=== PATIENT | female | born 1985 | race Caucasian/White ===

== ENCOUNTER 2016-11-03 11:48 | Emergency (ER) | payer SELFPAY ==
[~2016-11-03 11:48] MED LIST: CETI10 PO; HYDR50TA94 PO; SERT-129 PO
--- NOTE | 2016-11-03 12:38 | PD ---
HPI Chief Complaint I don't feel well Date Seen: Nov 03, 2016 Time Seen: 12:34 Travel History International Travel<30 Days: No Contact w/Intl Traveler<30Days: No Known Affected Area: No History of Present Illness HPI 31-year-old who is at 18-19 weeks gestation, being followed by [facility], comes in today for evaluation as she felt poorly. Patient states that she felt a little short of breath and shaky earlier this morning around 845. Although she has felt quite a bit better now she still feels like she is a little shaky. Patient denies anemia and her last hematocrit was 39 and this was 6 weeks ago. Patient has some hypertension with her first but delivered at term with a section due to failure to progress. Patient does have anxiety and is being treated with Zoloft. Para: 1 : 2 History Past Medical History Narrative Medical Anxiety Mild hypertension with her first , did not need induction Obstetric History Obstetric History section Past Surgical History Narrative Surgical section Family History Family History: Negative Social History Alcohol Use: No Tobacco Use: No Substance Abuse: No Allergies-Medications (Allergen,Severity, Reaction): Coded Allergies: Latex (Verified Allergy, Severe, 02/28/16) SENSITIVITY Bacitracin (Verified Allergy, Unknown, 02/28/16) Cortisone (Verified Allergy, Unknown, 02/28/16) Home Meds Reported Medications Cetirizine 10 Mg Tab10 Mg PO HS Ref 0 05/30/16 Sertraline 100 Mg [id number] Mg PO DAILY #30 TAB Ref 0 05/30/16 Hydroxyzine HCl 50 Mg Tab50 Mg PO HS PRN (INSOMNIA) #30 TAB Ref 0 05/30/16 Review of Systems Except as stated in HPI: all other systems reviewed are Neg Physical Exam Narrative GENERAL: Well-nourished, well-developed patient. SKIN: Warm and dry. HEAD: Normocephalic and atraumatic. EYES: No scleral icterus. No injection or drainage. ENT: No nasal drainage noted. Mucous membranes pink. Airway patent. NECK: Supple, trachea midline. No JVD. CARDIOVASCULAR: Regular rate and rhythm without murmurs, gallops, or rubs. RESPIRATORY: Breath sounds equal bilaterally. No accessory muscle use. BREASTS: Bilateral exam showed no masses , no retractions, no nipple discharge. ABDOMEN/GI: Abdomen soft, non-tender, bowel sounds present, no rebound, no guarding Gravid to [-] weeks size Fundal Height: [18-] GENITOURINARY: Deferred External Genitalia: intact and normal in appearance BUS glands: [-] Cervix: [-] Dilatation: [-] Effacement: [-] Station: [-] Presentation: [-] Membranes: [intact or ruptured] Uterine Contractions: [-] FHT's: 152 Category: [-] Baseline: [-] Reactive: [-] Variability: [-] Decels: [-] EXTREMITIES: No cyanosis or edema. BACK: Nontender without obvious deformity. No CVA tenderness. NEUROLOGICAL: Awake and alert. Motor and sensory grossly within normal limits. Five out of 5 muscle strength in all muscle groups. Normal speech. Data Data Vital Signs Reviewed: Yes MDM Plan 31-year-old at 18-19 weeks gestation Normal examination and evaluation, blood pressure is normotensive Discussed dietary changes discharge and patient will follow-up with her primary provider Diagnosis Diagnosis: Primary Impression: Dizziness, nonspecific Additional Impressions: 18 weeks gestation of Morbid obesity due to excess calories Previous delivery affecting , antepartum Disposition: 01 DISCHARGE HOME Patricia Arita MD Nov 03, 2016 12:38
== END 2016-11-03 13:28 | disposition home or self-care (01) ==
LOC: HOBED 11:48
DX: O26.892 Other specified pregnancy related conditions, second trimester (principal); O99.212 Obesity complicating pregnancy, second trimester; O99.342 Other mental disorders complicating pregnancy, second trimester; R55 Syncope and collapse; F41.9 Anxiety disorder, unspecified
CPT/HCPCS: 99282

== ENCOUNTER 2017-03-25 10:06 | Inpatient (IN) | payer MEDICAID ==
[2017-03-25] VITALS (14 sets, daily range): BP systolic 106–125; BP diastolic 60–77; PULSE 73–101; RESP 16–20; TEMP 97.7–98.7; O2SAT 99–100
[~2017-03-25] VITALS: Ht 160 cm; Wt 115.0 kg
[2017-03-25] MEDS ORDERED: PREN29TA PO (10:36)
[2017-03-25] MEDS ORDERED: DIPH50LI13 (10:38)
--- NOTE | 2017-03-25 10:54 | HHI.HP ---
HPI Chief Complaint Scheduled Date Seen: Mar 25, 2017 Time Seen: 10:30 Travel History International Travel<30 Days: No Contact w/Intl Traveler<30Days: No Known Affected Area: No History of Present Illness HPI Patient is a 31-year-old at 38 weeks and 1 day who presents for a scheduled . She is a [facility] patient. She has had a normal except for a lot of nausea. She reports that she has been having contractions about 2-3 an hour, irregularly. She denies any vaginal bleeding, leakage of fluid. She reports movement. The last time she had anything to eat was around 7-8 PM last night. Weeks Gestation: 38 Para: 1 : 2 History Past Medical History Narrative Medical Patient has a history of asthma associated with seasonal allergies Obstetric History Obstetric History Patient is a . Her last was compensated by some high blood pressure, which did not require medication. She had a at 41 weeks and 2 days because she says the baby was stuck sideways in her abdomen and was unable to get the head into the pelvis. She did have a normal weight baby of 7 lbs. 14 oz. She currently has a healthy 4-year-old son. Patient reports that she has had this has been normal without any elevated blood pressure blood sugars. Labs have been normal per patient report. Past Surgical History Narrative Surgical [place] teeth removal Family History Narrative Family History Family history of diabetes Social History Narrative Social History Patient lives at home with her and 4-year-old son. Alcohol Use: No Tobacco Use: No Substance Abuse: No Allergies-Medications (Allergen,Severity, Reaction): Coded Allergies: bacitracin (Unverified Allergy, Severe, blisters, 03/25/17) chloroxylenol (Verified Allergy, Severe, blisters, 03/25/17) cortisone (Unverified Allergy, Severe, rash, 03/25/17) latex (Unverified Allergy, Severe, hives, 03/25/17) Home Meds Active Scripts Sertraline (Sertraline) 100 Mg Tab, 100 MG PO DAILY, #30 TAB 0 Refills Prov:Aurora Chacko MD R2 03/24/17 Reported Medications Diphenhydramine HCl (Unisom) 50 Mg/30 Ml Liquid, 25 MG DAILY 03/25/17 Vit-Iron Carbonyl ( Plus Iron 29-1 mg) 29 Mg Iron-1 Mg Tab, 1 TAB PO DAILY for Nutritional Supplement, #30 TAB 0 Refills 03/25/17 Discontinued Reported Medications Cetirizine (Cetirizine) 10 Mg Tab, 10 MG PO HS for Allergies, TAB 0 Refills 05/30/16 Hydroxyzine HCl (Hydroxyzine HCl) 50 Mg Tab, 50 MG PO HS Y for INSOMNIA, #30 TAB 0 Refills 05/30/16 Review of Systems General / Constitutional: No: Fever, Chills Eyes: No: Visual changes HENT: No: Headaches Cardiovascular: No: Chest Pain or Discomfort, Edema Respiratory: No: Short of Breath Gastrointestinal: Nausea, No: Vomiting, Abdominal Pain Genitourinary: No: Dysuria Physical Exam Vital Signs Date Time Temp Pulse Resp B/P (MAP) Pulse Ox O2 Delivery O2 Flow Rate FiO2 03/25/17 10:30 85 120/74 (89) 03/25/17 10:20 101 125/77 (93) Narrative GENERAL: Well-nourished, well-developed obese female patient. SKIN: Warm and dry. HEAD: Normocephalic and atraumatic. EYES: No scleral icterus. No injection or drainage. ENT: No nasal drainage noted. Mucous membranes pink. Airway patent. NECK: Supple, trachea midline. No JVD. CARDIOVASCULAR: Regular rate and rhythm without murmurs, gallops, or rubs. RESPIRATORY: Breath sounds equal bilaterally. No accessory muscle use. ABDOMEN/GI: Abdomen soft, non-tender, bowel sounds present, no rebound, no guarding Gravid to 38 weeks size FHT's: Category: Category 1 Baseline: 130 Reactive: Reactive Variability: Moderate Decels: none EXTREMITIES: No cyanosis or edema. BACK: Nontender without obvious deformity. No CVA tenderness. NEUROLOGICAL: Awake and alert. Motor and sensory grossly within normal limits. Five out of 5 muscle strength in all muscle groups. Normal speech. Caprini VTE Risk Assessment Caprini VTE Risk Assessment: No/Low Risk (score <= 1) Caprini Risk Assessment Model Point Value = 1 Point Value = 2 Point Value = 3 Point Value = 5 Age 41-60 Minor surgery BMI > 25 kg/m2 Swollen legs Varicose veins or History of unexplained or recurrent spontaneous Oral contraceptives or hormone replacement Sepsis (< 1 month) Serious lung disease, including pneumonia (< 1 month) Abnormal pulmonary function Acute myocardial infarction Congestive heart failure (< 1 month) History of inflammatory bowel disease Medical patient at bed rest Age 61-74 Arthroscopic surgery Major open surgery (> 45 min) Laparoscopic surgery (> 45 min) Malignancy Confined to bed (> 72 hours) Immobilizing plaster cast Central venous access Age >= 75 History of VTE Family history of VTE Factor V Leiden Prothrombin [id number] Lupus anticoagulant Anticardiolipin antibodies Elevated serum homocysteine Heparin-induced thrombocytopenia Other congenital or acquired thrombophilia Stroke (< 1 month) Elective arthroplasty Hip, pelvis, or leg fracture Acute spinal cord injury (< 1 month) Prophylaxis Regimen Total Risk Factor Score Risk Level Prophylaxis Regimen 0-1 Low Early ambulation 2 Moderate Order ONE of the following: *Sequential Compression Device (SCD) *Heparin 5000 units SQ BID 3-4 Higher Order ONE of the following medications: *Heparin 5000 units SQ TID *Enoxaparin/Lovenox 40 mg SQ daily (WT < 150 kg, CrCl > 30 mL/min) *Enoxaparin/Lovenox 30 mg SQ daily (WT < 150 kg, CrCl > 10-29 mL/min) *Enoxaparin/Lovenox 30 mg SQ BID (WT < 150 kg, CrCl > 30 mL/min) AND/OR *Sequential Compression Device (SCD) 5 or more Highest Order ONE of the following medications: *Heparin 5000 units SQ TID (Preferred with Epidurals) *Enoxaparin/Lovenox 40 mg SQ daily (WT < 150 kg, CrCl > 30 mL/min) *Enoxaparin/Lovenox 30 mg SQ daily (WT < 150 kg, CrCl > 10-29 mL/min) *Enoxaparin/Lovenox 30 mg SQ BID (WT < 150 kg, CrCl > 30 mL/min) AND *Sequential Compression Device (SCD) Data Data Vital Signs Reviewed: Yes Orders Orders Admit To Inpatient (03/25/17 ) Code Status (03/25/17 10:30) Vital Signs (Adult) .ON ADMISSION (03/25/17 10:30) Activity Oob Ad Ellen (03/25/17 10:30) Heart (03/25/17 10:30) Urinary Catheter Management KENAN.Q8H (03/25/17 10:30) ^ Preps (03/25/17 10:30) Scd / Teofilo / Foot Pump KENAN.QSHIFT (03/25/17 10:30) ^ Ultrasound For Locatio (03/25/17 10:30) Diet Npo (03/25/17 Lunch) Lactated Ringer's 1000 Ml Inj (Lr 1000 M (03/25/17 10:30) Lactated Ringer's 1000 Ml Inj (Lr 1000 M (03/25/17 11:00) Cefazolin 2 Gm Premix (Ancef 2 Gm Premix (03/25/17 11:30) Citric Acid-Sodium Citrate Liq (Bicitra (03/25/17 12:00) Type And Screen (03/25/17 10:30) Complete Blood Count With Diff (03/25/17 10:30) Urinalysis - C+S If Indicated (03/25/17 10:30) Drug Screen, Random Urine (03/25/17 10:30) Inpatient Certification (03/25/17 ) Specimen To Be Collected PRN (03/25/17 10:30) Specimen To Be Collected PRN (03/25/17 10:30) Assessment/Plan Problem List: (1) scheduled (2) Previous delivery affecting , antepartum ICD Codes: O34.219 - Maternal care for unspecified type scar from previous delivery Status: Acute (3) 38 weeks gestation of ICD Codes: Z3A.38 - 38 weeks gestation of Assessment and Plan Patient is a 31-year-old at 38 weeks and 1 day with a history of asthma, not requiring medication, previous , depression on sertraline, latex allergy, possible allergy to OR disinfective solutions, who presents for a scheduled . Patient asymptomatic. heart tracing reassuring. 1. scheduled -Admit to inpatient -Type and screen, CBC, UDS, UA -Nothing by mouth -Ancef 2 g preoperatively -LR IV -Monitor heart rate -SCDs bilaterally -Monitor vital signs -Anticipate uncomplicated -No latex, consider different cleaning solutions in OR 2. depression -continue Sertraline -Anticipate withdrawal 3. asthma -no medications required -carboprost (Hemabate) should be avoided in patients with asthma 4. 38 week -Continue vitamins 5. insomnia -Continue home medication of Unisom/diphenhydramine Discussed with Dr. Payne Discharge Planning Anticipate discharge on postop day 2-3 Marlon Leger MD R2 Mar 25, 2017 10:54
[2017-03-25 11:01] LABS: AUTOMATED NEUTROPHIL # 8.2 TH/MM3 (1.8-7.7); BASOPHIL % 0.2 % (0.0-2.0); EOSINOPHIL # 0.1 TH/MM3 (0-0.4); EOSINOPHIL % 0.9 % (0.0-4.0); HEMATOCRIT 41.4 % (35.0-46.0); HEMO FLAGS DIFF FINAL; LYMPH % 16.8 % (9.0-44.0); LYMPHOCYTE # 1.8 TH/MM3 (1.0-4.8); MEAN CELL VOLUME 86.2 FL (80.0-100.0); MEAN CORPUSCULAR HEMOGLOBIN 28.5 PG (27.0-34.0); MEAN CORPUSCULAR HGB CONC 33.1 % (32.0-36.0); MONO % 4.2 % (0.0-8.0); NEUT % 77.9 % (16.0-70.0); PLATELET COUNT 231 TH/MM3 (150-450); RED CELL DISTRIBUTION WIDTH 14.9 % (11.6-17.2); WHITE BLOOD COUNT 10.6 TH/MM3 (4.0-11.0)
[2017-03-25 11:12] LABS: BACTERIA, URINE OCC /hpf; BLOOD, URINE TRACE (NEG); COMMENT (UR) CULTURE INDICATED; CULTURE IF INDICATED CULTURE INDICATED; GLUCOSE,URINE NEG (NEG); KETONE, URINE NEG (NEG); MUCUS URINE FEW /lpf (OCC); NITRITE,URINE NEG (NEG); PH, URINE 5.5 (5.0-8.5); SQUAMOUS EPITHELIAL CELL URINE 2 /hpf (0-5); URINE COLOR YELLOW (YELLW/STRAW)
[2017-03-25] MEDS ORDERED: ceFAZolin 2 GM PREMIX 50 ML IV SCH (11:30)
[2017-03-25] MEDS ORDERED: OXYTOCIN 10 UNIT/ML AMP IV ONE (12:00)
[2017-03-25] MEDS ORDERED: PROPOFOL 200 MG/20 ML AMP IV ONE (12:00)
[2017-03-25] MEDS ORDERED: KETOROLAC TROMETHAMINE 30 MG/ML (IVP) VIAL IV PUSH ONE (12:00)
[2017-03-25] MEDS ORDERED: MORPHINE SULFATE PF 5 MG/10 ML VIAL EPIDURAL ONE (12:00)
[2017-03-25] MEDS ORDERED: CITRIC ACID-SODIUM CITRATE LIQ 30 ML UDC PO SCH (12:00)
[2017-03-25] MEDS ORDERED: ONDANSETRON HCL 4 MG/2 ML VIAL IV PUSH ONE (12:00)
[2017-03-25] MEDS ORDERED: LACTATED RINGER'S 1000 ML INJ 1,000 ML IV ONE ×2 (12:00)
[2017-03-25] MEDS ORDERED: ePHEDrine/NS 25 MG/5 ML SYR IV ONE (12:00)
[2017-03-25] MEDS: LACTATED RINGER'S 1000 ML INJ 1,000 ML IV SCH ×2 (12:22→20:29)
--- NOTE | 2017-03-25 15:29 | PD.OP ---
Operative Report Date of Surgery: Mar 25, 2017 Preoperative Diagnosis: 1. IUP @ 39.4wks 2. h/o CSx1 Postoperative Diagnosis: same Procedure: rCS Anesthesia: spinal Surgeon: Tomás Payne Music Leader(s): tech Resident Surgeon: Marlon Leger, PGY-2 Operation and Findings: IVF: 1500cc UOP: 200cc EBL: 650cc Findings: vtx female delivered at 14:29, APGARs 9/9, wt 3280; filmy omental adhesions Specimens: cord blood Technique: The pt was taken to the OR where spinal anesthesia was found to be adequate. She was then prepped and draped in the normal sterile fashion. A time out was taken and agreed by all team members. A Pfannensteil skin incision was made with the scalpel and carried down to the underlying layer of fascia which was nicked in the midline. The fascia was extended laterally with Toscano scissors. Godwin clamps were used to elevate the fascia and the underlying rectus muscles were dissected off with blunt and sharp dissection. The same was done to the inferior fascia. The muscles were in the midline and the peritoneum entered bluntly. It was stretched with adequate visualization of the bladder. A bladder blade was placed and a bladder flap created. A low uterine incision was then made with the scalpel and extended bluntly. A hand was placed into the lower uterine segment and the head delivered atraumatically followed by the body. Delayed cord clamping x45sec took place while the baby was suctioned, dried, and stimulated. Cord was double clamped and handed off to awaiting team. Cord blood was collected and sent to the lab. The placenta expelled with fundal massage. The uterus was exteriorized and cleared of all clot and debris. The hysterotomy was closed with 0-vicryl in a running locked fashion. A second layer of 0-monocryl was used to embricate and achieve excellent hemostasis. Omental adhesions to the anterior uterine wall were double clamped with Zuleyma's and tied off with vicryl. The cul-de-sac was suctioned and the uterus replaced into the abdomen. The gutters were inspected and cleared of all clot and debris. The hysterotomy was made hemostatic with Genaro. All instruments were removed from the abdomen and the peritoneum was closed with 3-0 vicryl. The rectus fascia was inspected and hemostatic. The muscles were reapproximated with a horizontal mattress stitch using 0-vicryl. The fascia was closed with 0-vicryl in a running fashion from L to R. The subcutaneous tissue was irrigated and the Bovie used to achieve excellent hemostasis. The tissue was reapproximated with 3-0 plain gut. The skin was clsoed with 4-0 monocryl in a running subcuticular fashion. The incision was dressed and a closing time out performed. The pt tolerated the procedure well and was taken to the PACU in stable condition. Sponge, laps, instruments, and needle counts were correct x3. Tomás Payne MD Mar 25, 2017 15:29
[2017-03-25] MEDS ORDERED: SODIUM CHLORIDE 0.9% FLUSH 10 ML FLUSH IV FLUSH PRN (15:30)
[2017-03-25] MEDS ORDERED: ONDANSETRON HCL 4 MG/2 ML VIAL IV PUSH PRN (15:30)
[2017-03-25] MEDS ORDERED: OXYTOCIN 30 UNITS-500ML PREMIX 500 ML IV ONE (15:30)
[2017-03-25] MEDS ORDERED: SIMETHICONE 80 MG CHEWABLE TAB PO PRN (15:30)
[2017-03-25] MEDS ORDERED: ZOLPIDEM TARTRATE 5 MG TAB PO PRN (15:30)
[2017-03-25] MEDS ORDERED: KETOROLAC TROMETHAMINE 60 MG/2 ML (IM) VIAL IM PRN (15:30)
[2017-03-25] MEDS ORDERED: ACETAMINOPHEN 325 MG TAB PO PRN (15:30)
[2017-03-25] MEDS ORDERED: OXYTOCIN 30 UNITS-500ML PREMIX 500 ML ONE (16:33)
[2017-03-25] MEDS ORDERED: diphenhydrAMINE HCL 25 MG CAP PO PRN (21:00)
[2017-03-25] MEDS: SODIUM CHLORIDE 0.9% FLUSH 10 ML FLUSH IV FLUSH SCH (21:00)
[2017-03-25] MEDS: SERTRALINE HCL 100 MG TAB PO SCH (21:28)
[2017-03-25] MEDS: oxyCODONE/ACETAMINOPHEN 5 MG/325 MG TAB PO PRN (22:10)
[2017-03-26] MEDS ORDERED: OXYTOCIN 30 UNITS-500ML PREMIX 500 ML IV PRN (01:30)
[2017-03-26] MEDS: oxyCODONE/ACETAMINOPHEN 5 MG/325 MG TAB PO PRN ×5 (02:19→20:56)
[2017-03-26 04:00] VITALS: BP 106/61; PULSE 95; RESP 18; TEMP 98.6
[2017-03-26 06:02] LABS: AUTOMATED NEUTROPHIL # 9.3 TH/MM3 (1.8-7.7); BASOPHIL % 0.1 % (0.0-2.0); EOSINOPHIL # 0.1 TH/MM3 (0-0.4); EOSINOPHIL % 0.6 % (0.0-4.0); HEMATOCRIT 35.1 % (35.0-46.0); HEMO FLAGS DIFF FINAL; LYMPH % 13.2 % (9.0-44.0); LYMPHOCYTE # 1.5 TH/MM3 (1.0-4.8); MEAN CELL VOLUME 86.3 FL (80.0-100.0); MEAN CORPUSCULAR HGB CONC 32.4 % (32.0-36.0); MONO % 4.1 % (0.0-8.0); PLATELET COUNT 161 TH/MM3 (150-450); RED BLOOD COUNT 4.07 MIL/MM3 (4.00-5.30); RED CELL DISTRIBUTION WIDTH 14.8 % (11.6-17.2); WHITE BLOOD COUNT 11.3 TH/MM3 (4.0-11.0)
[2017-03-26] MEDS: LACTATED RINGER'S 1000 ML INJ 1,000 ML IV SCH (06:29)
[2017-03-26] MEDS: PRENATAL VITAMIN CHEWABLE TAB CHEW SCH (07:49)
[2017-03-26 07:50] VITALS: BP 104/66; PULSE 80; RESP 18; TEMP 98.2
--- NOTE | 2017-03-26 08:43 | HHI.OB ---
Subjective Remarks Patient is a 31-year-old G 2 P 2 delivered at 39 weeks and 4 days. Patient is day 1 after due to prior . Patient's pain is well- controlled. Patient reports eating and drinking without any nausea or vomiting. Patient reports minimal bleeding. Patient has passed gas but no bowel movements. Patient recently had [place] removed. Patient is walking without lower extremity pain or shortness of breath. Patient wants to consider contraception and will be breast-feeding. Objective Vitals/I&O Vital Signs Date Time Temp Pulse Resp B/P (MAP) Pulse Ox O2 Delivery O2 Flow Rate FiO2 03/26/17 04:00 98.6 95 18 106/61 (76) 03/25/17 23:48 98.7 87 18 106/69 (81) 03/25/17 20:00 93 115/69 (84) 03/25/17 20:00 98.2 18 03/25/17 17:05 98.1 88 19 108/71 (83) 03/25/17 16:31 98.1 03/25/17 16:28 100 03/25/17 16:28 80 20 110/64 (79) 03/25/17 16:12 96 113/60 (77) 03/25/17 16:12 18 100 03/25/17 15:59 85 18 99 03/25/17 15:58 111/65 (80) 03/25/17 15:44 90 20 112/65 (81) 99 03/25/17 15:35 97.7 03/25/17 15:26 16 03/25/17 15:26 18 110/68 (82) 03/25/17 15:26 100 03/25/17 15:24 73 03/25/17 10:30 85 120/74 (89) 03/25/17 10:20 101 125/77 (93) Result Diagram: 03/26/17 0437 Objective Remarks GENERAL: Well-nourished, well-developed patient. CARDIOVASCULAR: Regular rate and rhythm without murmurs, gallops, or rubs. RESPIRATORY: Breath sounds equal bilaterally. No accessory muscle use. ABDOMEN/GI: Abdomen soft, non-tender, bowel sounds present. Incision: Dressing is clean, dry and intact. Fundus: Firm, non-tender at umbilicus. GENITOURINARY: Light to moderate bleeding. EXTREMITIES: No cyanosis. +1 pitting edema bilaterally. Legs are non-tender, without signs of DVT. Medications and IVs Current Medications Medications (Trade) Dose Ordered Sig/Wil Route Start Time Stop Time Status Last Admin Lactated Ringer's 1,000 ml @ 150 mls/hr Q6H40M IV 03/25/17 12:30 03/25/17 12:22 Cefazolin Sodium/ Dextrose 50 ml @ 100 mls/hr AUTOMOTIVE PARTS COUNTERPERSON IV 03/25/17 11:30 03/29/17 11:29 03/25/17 12:22 (Bicitra Liq) 30 ml AUTOMOTIVE PARTS COUNTERPERSON PO 03/25/17 12:00 03/29/17 11:59 03/25/17 12:22 (Benadryl) 25 mg HS PRN PO 03/25/17 21:00 (Zoloft) 100 mg HS PO 03/25/17 21:00 03/25/17 21:28 Lactated Ringer's 1,000 ml @ 100 mls/hr Q10H IV 03/25/17 20:29 03/26/17 16:28 Oxytocin 500 ml @ 100 mls/hr UNSCH X1 PRN IV 03/26/17 01:30 03/27/17 01:29 (NS Flush) 2 ml BID IV FLUSH 03/25/17 21:00 (NS Flush) 2 ml UNSCH PRN IV FLUSH 03/25/17 15:30 (Mylicon Chew) 80 mg QID PRN PO 03/25/17 15:30 (Tylenol) 650 mg Q6H PRN PO 03/25/17 15:30 (Toradol Inj) 30 mg Q6H PRN IM 03/25/17 15:30 (Percocet 5-325 Mg) 1 tab Q4H PRN PO 03/25/17 15:30 03/26/17 02:19 (Percocet 5-325 Mg) 2 tab Q4H PRN PO 03/25/17 15:30 03/26/17 07:49 (Merle-Colace) 2 tab Q12H PRN PO 03/25/17 15:30 (Ambien) 5 mg HS PRN PO 03/25/17 15:30 (M-M-R Ii Inj) 0.5 ml ONCE ONCE SQ 03/26/17 16:00 03/26/17 16:01 (Boostrix Inj) 0.5 ml ONCE ONCE IM 03/26/17 16:00 03/26/17 16:01 (Zofran Inj) 4 mg Q6H PRN IV PUSH 03/25/17 15:30 Assessment/Plan Problem List: (1) scheduled (2) Previous delivery affecting , antepartum ICD Codes: O34.219 - Maternal care for unspecified type scar from previous delivery Status: Acute (3) 38 weeks gestation of ICD Codes: Z3A.38 - 38 weeks gestation of Assessment and Plan Patient is a 31-year-old delivered at 38 weeks and 5 days. Patient is day 1 after . Patient was counseled to do 6 weeks of pelvic rest. Patient was counseled to follow up in one week for incision check and 6 weeks for OB follow-up. Patient requested follow-up and is considering contraception. --AF VSS --Continue routine care --Motrin and Percocet when necessary for pain --Encourage OOB --Pelvic rest for 6 weeks will need follow-up appointment at that time. --Contraception: Considering options --Anticipate discharge in 1-2 days Chronic medical problems: depression -continue Sertraline -Anticipate withdrawal asthma -no medications required -carboprost (Hemabate) should be avoided in patients with asthma insomnia -Continue home medication of Unisom/diphenhydramine Discussed with Dr. Payne Discharge Planning Anticipate discharge on postop day 2-3 Aidan Hester MD R1 Mar 26, 2017 08:43
[2017-03-26 10:50] VITALS: RESP 18
[2017-03-26 12:00] VITALS: BP 103/69; PULSE 89; RESP 18; TEMP 98.7
[2017-03-26] MEDS: DOCUSATE SODIUM 50 MG/SENNA 8.6 MG TAB PO PRN (12:20)
[2017-03-26 14:36] VITALS: RESP 18
[2017-03-26] MEDS ORDERED: MEASLES, MUMPS, RUBELLA VACCINE 0.5 ML VIAL SQ ONE (16:00)
[2017-03-26] MEDS ORDERED: DIPHTH/TETANUS/ACEL PERTUSSIS (BOOSTER) 0.5 ML VIAL/PFS IM ONE (16:00)
[2017-03-26 20:00] VITALS: BP 125/82; PULSE 82; RESP 18; TEMP 98.6
[2017-03-26] MEDS: SODIUM CHLORIDE 0.9% FLUSH 10 ML FLUSH IV FLUSH SCH (21:00)
[2017-03-26] MEDS: SERTRALINE HCL 100 MG TAB PO SCH (21:14)
[2017-03-27] MEDS: oxyCODONE/ACETAMINOPHEN 5 MG/325 MG TAB PO PRN ×5 (01:36→21:12)
[2017-03-27] MEDS: LACTATED RINGER'S 1000 ML INJ 1,000 ML IV SCH (04:30)
--- NOTE | 2017-03-27 08:35 | HHI.OB ---
Subjective Post Operative Day: 2 Remarks Patient is a 31-year-old delivered at 38 weeks and 5 days. Patient is day 2 after repeat . Patient's pain is mostly well- controlled, but she is complaining of some incisional pain and some right shoulder pain. Patient reports eating and drinking without any nausea or vomiting. Patient reports minimal bleeding. Patient has passed gas but no bowel movements. Patient is walking without lower extremity pain or shortness of breath. Patient reports desire for contraception and breast-feeding. Objective Vitals/I&O Vital Signs Date Time Temp Pulse Resp B/P (MAP) Pulse Ox O2 Delivery O2 Flow Rate FiO2 03/26/17 20:00 82 18 125/82 (96) 03/26/17 20:00 98.6 03/26/17 14:36 18 03/26/17 12:00 98.7 89 18 103/69 (80) 03/26/17 10:50 18 Result Diagram: 03/26/17 0437 Objective Remarks GENERAL: Well-nourished, well-developed patient. CARDIOVASCULAR: Regular rate and rhythm without murmurs, gallops, or rubs. RESPIRATORY: Breath sounds equal bilaterally. No accessory muscle use. ABDOMEN/GI: Abdomen soft, non-tender, bowel sounds present. Incision: Dressing is clean, dry and intact. Fundus: Firm, non-tender at umbilicus. GENITOURINARY: Light to moderate bleeding. EXTREMITIES: No cyanosis. +1 pitting edema bilaterally. Legs are non-tender, without signs of DVT. Medications and IVs Current Medications Medications (Trade) Dose Ordered Sig/Wil Route Start Time Stop Time Status Last Admin Lactated Ringer's 1,000 ml @ 150 mls/hr Q6H40M IV 03/25/17 12:30 03/25/17 12:22 Cefazolin Sodium/ Dextrose 50 ml @ 100 mls/hr EQUIPMENT SPECIALIST IV 03/25/17 11:30 03/29/17 11:29 03/25/17 12:22 (Bicitra Liq) 30 ml EQUIPMENT SPECIALIST PO 03/25/17 12:00 03/29/17 11:59 03/25/17 12:22 (Benadryl) 25 mg HS PRN PO 03/25/17 21:00 (Zoloft) 100 mg HS PO 03/25/17 21:00 03/26/17 21:14 (NS Flush) 2 ml BID IV FLUSH 03/25/17 21:00 (NS Flush) 2 ml UNSCH PRN IV FLUSH 03/25/17 15:30 (Mylicon Chew) 80 mg QID PRN PO 03/25/17 15:30 (Tylenol) 650 mg Q6H PRN PO 03/25/17 15:30 (Toradol Inj) 30 mg Q6H PRN IM 03/25/17 15:30 (Percocet 5-325 Mg) 1 tab Q4H PRN PO 03/25/17 15:30 03/26/17 20:56 (Percocet 5-325 Mg) 2 tab Q4H PRN PO 03/25/17 15:30 03/27/17 07:58 (Merle-Colace) 2 tab Q12H PRN PO 03/25/17 15:30 03/26/17 12:20 (Ambien) 5 mg HS PRN PO 03/25/17 15:30 (Zofran Inj) 4 mg Q6H PRN IV PUSH 03/25/17 15:30 (Motrin) 400 mg Q6H PRN PO 03/26/17 09:00 Assessment/Plan Problem List: (1) scheduled (2) Previous delivery affecting , antepartum ICD Codes: O34.219 - Maternal care for unspecified type scar from previous delivery Status: Acute (3) 38 weeks gestation of ICD Codes: Z3A.38 - 38 weeks gestation of Assessment and Plan Patient is a 31-year-old delivered at 38 weeks and 5 days. Patient is day 2 after repeat . Patient was counseled to do 6 weeks of pelvic rest. Patient was counseled to follow up in one week for incision check and 6 weeks for OB follow-up. Patient requested follow-up and is considering contraception. --AF VSS --Continue routine care --Motrin and Percocet when necessary for pain --Encourage OOB --Pelvic rest for 6 weeks will need follow-up appointment at that time. 1 week incision check. --Contraception: Considering options; will arrange with outpatient provider --Anticipate discharge tomorrow Chronic medical problems: depression -continue Sertraline -Anticipate withdrawal asthma -no medications required -carboprost (Hemabate) should be avoided in patients with asthma insomnia -Continue home medication of Unisom/diphenhydramine Discussed with Dr. Trevino Discharge Planning Anticipate discharge tomorrow Marlon Leger MD R2 Mar 27, 2017 08:35
[2017-03-27 08:48] VITALS: BP 110/69; PULSE 89; RESP 16; TEMP 98.4
[2017-03-27] MEDS: SODIUM CHLORIDE 0.9% FLUSH 10 ML FLUSH IV FLUSH SCH (09:41)
[2017-03-27] MEDS: PRENATAL VITAMIN CHEWABLE TAB CHEW SCH (09:41)
[2017-03-27] MEDS: DOCUSATE SODIUM 50 MG/SENNA 8.6 MG TAB PO PRN (12:27)
[2017-03-27] MEDS: IBUPROFEN 400 MG TAB PO PRN ×2 (16:37→21:12)
[2017-03-27] MEDS: SERTRALINE HCL 100 MG TAB PO SCH (20:38)
[2017-03-27 21:12] VITALS: BP 142/80; PULSE 94; RESP 20; TEMP 98.3
[2017-03-27 21:30] VITALS: BP 142/80; PULSE 94; RESP 20; TEMP 98.3
[2017-03-28] MEDS: IBUPROFEN 400 MG TAB PO PRN ×2 (03:55→11:01)
[2017-03-28] MEDS: oxyCODONE/ACETAMINOPHEN 5 MG/325 MG TAB PO PRN ×2 (03:55→11:01)
[2017-03-28] MEDS ORDERED: IBUP1TAB5 PO (08:15)
[2017-03-28] MEDS ORDERED: PERI PO (08:15)
[2017-03-28] MEDS ORDERED: OXYC1TAB63 PO (08:15)
--- NOTE | 2017-03-28 08:16 | HHI.DCPOC ---
Discharge Care Plan Diagnosis: (1) scheduled Report Symptoms to Your Doctor -Temperature above 100.5 degrees -Redness, of incision or excessive or foul smelling drainage -Unusual pain or calf pain -Increased vaginal bleeding -Painful or difficulty urinating -Feelings of extreme sadness or anxiety after 2 weeks Goals to Promote Your Health * To prevent worsening of your condition and complications * To maintain your health at the optimal level Directions to Meet Your Goals Take your medications as prescribed Follow your dietary instruction Follow activity as directed Ensure plenty of rest for recovery Drink fluids for hydration Keep your appointments as scheduled Take your immunizations and boosters as scheduled If your symptoms worsen call your PCP, if no PCP go to Urgent Care Center or Emergency Room Smoking is Dangerous to Your Health. Avoid second hand smoke Call the 24-hour crisis hotline for domestic abuse at Axel Winn MD R2 Mar 28, 2017 08:16
--- NOTE | 2017-03-28 08:20 | HHI.OB ---
Subjective Post Operative Day: 3 Remarks Pt seen and examined this morning. Postoperative day # 3 AFVSS overnight. Incision not draining. Decreased lochia. Denies dysuria. No breast tenderness. She is feeding the baby via breast. Appetite good. No nausea or vomiting. Patient has not yet had a bowel movement, but does endorse bowel gas. Ambulating well. Denies calf pain or shortness of breath. Otherwise, she is doing well this morning and has no other concerns. (Axel Winn MD R2) Remarks Patient seen and evaluated with resident under direct supervision, agree with assessment and plan. (Russ Seo MD) Objective Vitals/I&O Vital Signs Date Time Temp Pulse Resp B/P (MAP) Pulse Ox O2 Delivery O2 Flow Rate FiO2 03/27/17 21:30 98.3 03/27/17 21:30 94 20 142/80 (100) 03/27/17 21:12 98.3 20 03/27/17 21:12 94 142/80 (100) 03/27/17 08:48 98.4 89 16 110/69 (83) (Axel Winn MD R2) Result Diagram: 03/26/17 0437 Objective Remarks GENERAL: Well-nourished, well-developed patient. CARDIOVASCULAR: Regular rate and rhythm without murmurs, gallops, or rubs. RESPIRATORY: Breath sounds equal bilaterally. No accessory muscle use. ABDOMEN/GI: Abdomen soft, non-tender, bowel sounds present. Incision: Dressing is clean, dry and intact. Fundus: Firm, non-tender at umbilicus. GENITOURINARY: Light to moderate bleeding. EXTREMITIES: No cyanosis. +1 pitting edema bilaterally. Legs are non-tender, without signs of DVT. Medications and IVs Current Medications Medications (Trade) Dose Ordered Sig/Wil Route Start Time Stop Time Status Last Admin Lactated Ringer's 1,000 ml @ 150 mls/hr Q6H40M IV 03/25/17 12:30 03/25/17 12:22 Cefazolin Sodium/ Dextrose 50 ml @ 100 mls/hr [employer] IV 03/25/17 11:30 03/29/17 11:29 03/25/17 12:22 (Bicitra Liq) 30 ml [employer] PO 03/25/17 12:00 03/29/17 11:59 03/25/17 12:22 (Benadryl) 25 mg HS PRN PO 03/25/17 21:00 (Zoloft) 100 mg HS PO 03/25/17 21:00 03/27/17 20:38 (NS Flush) 2 ml BID IV FLUSH 03/25/17 21:00 03/27/17 09:41 (NS Flush) 2 ml UNSCH PRN IV FLUSH 03/25/17 15:30 (Mylicon Chew) 80 mg QID PRN PO 03/25/17 15:30 (Tylenol) 650 mg Q6H PRN PO 03/25/17 15:30 (Toradol Inj) 30 mg Q6H PRN IM 03/25/17 15:30 (Percocet 5-325 Mg) 1 tab Q4H PRN PO 03/25/17 15:30 03/26/17 20:56 (Percocet 5-325 Mg) 2 tab Q4H PRN PO 03/25/17 15:30 03/28/17 03:55 (Merle-Colace) 2 tab Q12H PRN PO 03/25/17 15:30 03/27/17 12:27 (Ambien) 5 mg HS PRN PO 03/25/17 15:30 (Zofran Inj) 4 mg Q6H PRN IV PUSH 03/25/17 15:30 (Motrin) 400 mg Q6H PRN PO 03/26/17 09:00 03/28/17 03:55 (Axel Winn MD R2) Assessment/Plan Problem List: (1) scheduled Status: Acute (2) Previous delivery affecting , antepartum ICD Codes: O34.219 - Maternal care for unspecified type scar from previous delivery Status: Acute (3) 38 weeks gestation of ICD Codes: Z3A.38 - 38 weeks gestation of Assessment and Plan Patient is a 31-year-old delivered at 38 weeks and 5 days. Patient is day 3 after repeat . Patient was counseled to do 6 weeks of pelvic rest. Patient was counseled to follow up in one week for incision check and 6 weeks for OB follow-up. Patient requested follow-up and is considering contraception. --AF VSS --Continue routine care --Motrin and Percocet when necessary for pain --Encourage OOB --Pelvic rest for 6 weeks will need follow-up appointment at that time. 1 week incision check. --Contraception: Considering options; will arrange with outpatient provider --Anticipate discharge today, 03/28 Chronic medical problems: depression -continue Sertraline -Anticipate withdrawal asthma -no medications required -carboprost (Hemabate) should be avoided in patients with asthma insomnia -Continue home medication of Unisom/diphenhydramine Discussed with Dr. Seo Discharge Planning Anticipate discharge today, 03/28 (Axel Winn MD R2) Axel Winn MD R2 Mar 28, 2017 08:20 Russ Seo MD Mar 29, 2017 09:57
[2017-03-28 08:30] VITALS: BP 136/87; PULSE 84; RESP 20; TEMP 98.3
[2017-03-28] MEDS: PRENATAL VITAMIN CHEWABLE TAB CHEW SCH (11:01)
== END 2017-03-28 14:00 | disposition home or self-care (01) | DRG 766 ==
LOC: H2EB 10:06 → H1EA 16:54
PROVIDERS: ADMIT Obstetrics & Gynecology; ATTEND Obstetrics & Gynecology
PROC: 10D00Z1 Extraction of Products of Conception, Low, Open Approach (ICD-10-PCS; principal; 2017-03-25)
DX: O99.344 Other mental disorders complicating childbirth (principal); F32.9 Major depressive disorder, single episode, unspecified; O34.219 Maternal care for unspecified type scar from previous cesarean delivery; Z37.0 Single live birth; J45.909 Unspecified asthma, uncomplicated; O13.4 Gestational [pregnancy-induced] hypertension without significant proteinuria, complicating childbirth; Z3A.38 38 weeks gestation of pregnancy; O99.52 Diseases of the respiratory system complicating childbirth; Z83.3 Family history of diabetes mellitus; G47.00 Insomnia, unspecified; M25.511 Pain in right shoulder
CPT/HCPCS: 59025; 80307; 81001; 85025; 86850; 86900; 86901; 87086; 90715; J0690; J1885; J2274; J2405; J2590; J7120